=== PATIENT | female | born 1955 | race Caucasian/White ===

== ENCOUNTER 2024-07-20 22:01 | Emergency (ER) | payer MEDICARE, SELFPAY ==
[2024-07-20 22:04] VITALS: BP 184/95
--- NOTE | 2024-07-21 00:38 | ED.GENMED ---
History of Present Illness
General
Chief Complaint: Fall
Time Seen by Provider: 07/21/24 00:03
History of Present Illness
History of Present Illness:
Patient is a 68-year-old woman who is otherwise healthy presenting to the emergency department after a fall. Patient was outside about to go up to 2 steps into her house when she tripped. She did not hit her head or lose consciousness. She states
that she landed on her knees with her hands out and then she rolled over to the right side. She thinks that the right side of her ribs hit the steps. She was able to ambulate afterwards. She denies any numbness tingling or weakness. No headache.
No vision changes. No neck pain no back. She is able to do deep breath though she does have some discomfort with it.
Past History
Past History
ED Past Medical History: None
ED Past Surgical History: None
Social History
Living: with family
Phy Exam
Physical Exam
Physical Exam:
GENERAL: no acute distress
HEENT: atraumatic, extraocular muscles intact, no signs of entrapment, dentition intact, no other obvious trauma
NECK: no midline tenderness, normal range of motion, NEXUS criteria negative, no other obvious trauma
BACK: no midline tenderness, no other obvious trauma
CHEST: Right anterior rib tenderness around ribs 6-8, no flail segment, no subcutaneous emphysema, no other obvious trauma
LUNGS: clear to auscultation bilaterally
CARDIOVASCULAR: regular rate and rhythm
ABDOMEN: soft, non-tender, no masses, no other obvious trauma
PELVIS: stable, no obvious injury
EXTREMITIES: moving all extremities, distal pulses intact, no other obvious trauma, small abrasions to bilateral knees
NEUROLOGIC: awake, alert x 3, no focal deficits
Course
Orders/Labs/Results
Orders:
Orders
07/20/24 22:08
Ribs, Right 3 View W/PA Chest [CR Ribs-right 3 Vw W/pa Chest*] Urgent
Comment:
Reason For Exam: fall, right rib pain.
07/21/24 00:23
Incentive Spirometry [Rx Incentive Spirometry] [RESP] Urgent
Frequency: q1h while awake
Vital Signs
Initial and Last Documented VS:
Initial Vital Signs
Temp Pulse Resp BP Pulse Ox
98 F 103 18 184/95 96
07/20/24 22:04 07/20/24 22:04 07/20/24 22:04 07/20/24 22:04 07/20/24 22:04
Last Documented Vital Signs
Temp Pulse Resp BP Pulse Ox
98 F 103 18 184/95 96
07/20/24 22:04 07/20/24 22:04 07/20/24 22:04 07/20/24 22:04 07/20/24 22:04
MDM/Problems Addressed
Differential Diagnosis Includes:
Patient is a 68-year-old woman who is otherwise healthy presenting to the emergency department after mechanical trip and fall where she landed on her knees her hand and then landed on the right side of her ribs. Vitals unremarkable and exam does
show tenderness over the right lower anterior rib as well as small abrasions to her knees. No point tenderness. She is ambulatory. Differential consists of rib fractures. Could have fracture to the knee though she was ambulatory does not have
any point tenderness. Given she did not hit her head lose consciousness and she is not on a blood thinner less likely to have traumatic intracranial injury. consider obtaining CT scan however given that she has no focal neurological deficits and is
not on a blood thinner we will hold off. Chest x-ray obtained prior to evaluation was per my interpretation does not show any rib fracture. I did offer pain control with Tylenol Motrin and a lidocaine patch however patient prefers to go home to
take those medications. I did give her an incentive spirometer. She was pulling almost [id number] which is reassuring. Strict return precautions given.
*Critical Care Note
Total Time (30-74mins, 75-104mins- exclusive of procedures): Not Applicable
ED Attending Note
-
Portions of this chart may have been created with voice recognition software.� Occasional wrong word or��sound alike� substitutions may have occurred due to the inherent limitations of voice recognition software.
Discharge Plan
Departure
Patient Disposition: Home (Routine Discharge)
Date of Disposition: 07/21/24
Time of Disposition: 00:37
Patient with high blood pressure during this ER visit?: Yes
Discharge Problem:
Contusion of rib
Referrals:
Stephan Dee MD [Family Provider] -
Discharge Date and Time
Print Language: INDONESIAN
[2024-07-21 00:45] VITALS: BP 113/90
== END 2024-07-21 00:49 | disposition home or self-care (01) ==
LOC: EMR 22:01
PROVIDERS: EMERGENCY PHYSICIAN Student in an Organized Health Care Education/Training Program; FAMILY PHYSICIAN Family Medicine
DX: S20.211A Contusion of right front wall of thorax, initial encounter (principal); S80.212A Abrasion, left knee, initial encounter; S80.211A Abrasion, right knee, initial encounter; W10.9XXA Fall (on) (from) unspecified stairs and steps, initial encounter
CPT/HCPCS: 99283; 71101

== ENCOUNTER → 2024-10-22 07:11 | Outpatient (REF) | payer MEDICARE, SELFPAY ==
[2024-10-22 09:41] LABS: % Basophils 1.1 % (0-2); % Eosinophils 2.4 % (0-6); % Immature Granulocytes 0.3 % (0-0.5); % Lymphocytes 27.5 % (20.5-51.1); % Monocytes 8.7 % (1.7-9.3); Absolute Basophils 0.1 10^3/uL (0-0.2); Absolute Eosinophils 0.2 10^3/uL (0-0.7); Absolute Lymphocytes 1.8 10^3/uL (1.2-3.4); Absolute Monocytes 0.6 10^3/uL (0.1-0.6); Hematocrit 45.1 % (37.0-47.0); Hemoglobin 14.2 g/dL (12.0-16.0); Mean Corp Hgb Conc. 31.5 g/dL (33.0-37.0); Mean Corpuscular Hgb 29.8 pg (27.0-31.0); Mean Corpuscular Volume 94.5 fL (81.0-99.0); Mean Platelet Volume 9.8 fL (7.4-10.4); Nucleated Red Blood Cells % 0 %; Platelet Count 274 10^3/uL (130-400); Red Blood Cell Count 4.77 10^6/uL (4.20-5.40); Red Cell Dist. Width 13.4 % (11.5-14.5); White Blood Cell Count 6.7 10^3/uL (4.8-10.8)
[2024-10-22 09:51] LABS: ALT (SGPT) 17 U/L (0-35); AST (SGOT) 21 U/L (14-36); Albumin 4.2 g/dl (3.5-5.0); Alkaline Phosphatase 124 U/L (38-126); Blood Urea Nitrogen 19 mg/dl (7-17); Calcium 10.1 mg/dl (8.4-10.2); Carbon Dioxide 29 mmol/L (22-30); Chloride 100 mmol/L (98-107); Glucose 114 mg/dl (70-99); HDL Cholesterol 97 mg/dl; LDL Cholesterol, Calculated 135 mg/dl; Potassium 4.2 mmol/L (3.5-5.1); Sodium 138 mmol/L (135-145); Total Bilirubin 0.4 mg/dl (0.2-1.3); Total Cholesterol 252 mg/dl (50-199); Total Protein 7.2 g/dl (6.3-8.2); Triglyceride 103 mg/dl (10-149); Very Low Density Lipoprotein 20 mg/dl (0-30); eGFR > 60.00
[2024-10-22 10:19] LABS: TSH Reflex To Free T4 0.97 uIU/ml (0.47-4.68)
[2024-10-22 11:06] LABS: Glycohemoglobin (HgbA1c) 5.3 % (4.0-5.6)
== END ==
LOC: HWLAB 07:11
PROVIDERS: ATTENDING PHYSICIAN Physician Assistant Medical; FAMILY PHYSICIAN Physician Assistant Medical
DX: R73.01 Impaired fasting glucose (principal); E78.2 Mixed hyperlipidemia; Z00.01 Encounter for general adult medical examination with abnormal findings; E03.9 Hypothyroidism, unspecified
CPT/HCPCS: 36415; 80053; 80061; 83036; 84443; 85025

== ENCOUNTER → 2024-10-28 18:45 | Outpatient (REF) | payer MEDICARE, SELFPAY | LOC: MRI 18:45 | PROVIDERS: ATTENDING PHYSICIAN Physician Assistant Medical | DX: R03.0 Elevated blood-pressure reading, without diagnosis of hypertension (principal); E78.2 Mixed hyperlipidemia; H53.40 Unspecified visual field defects; R29.898 Other symptoms and signs involving the musculoskeletal system | CPT/HCPCS: 70553; A9575 ==

== ENCOUNTER 2024-10-31 13:38 | Inpatient (IN) | payer MEDICARE, SELFPAY ==
[2024-10-29 18:02] VITALS: BP 146/88
[2024-10-29 18:21] LABS: % Basophils 1.1 % (0-2); % Immature Granulocytes 0.3 % (0-0.5); % Monocytes 5.5 % (1.7-9.3); % Neutrophils 56.1 % (42.2-75.2); Absolute Basophils 0.1 10^3/uL (0-0.2); Absolute Eosinophils 0.1 10^3/uL (0-0.7); Absolute Lymphocytes 2.2 10^3/uL (1.2-3.4); Absolute Monocytes 0.4 10^3/uL (0.1-0.6); Absolute Neutrophils 3.6 10^3/uL (1.4-6.5); Hematocrit 43.1 % (37.0-47.0); Mean Corp Hgb Conc. 32.5 g/dL (33.0-37.0); Mean Corpuscular Hgb 29.7 pg (27.0-31.0); Mean Corpuscular Volume 91.3 fL (81.0-99.0); Mean Platelet Volume 9.5 fL (7.4-10.4); Nucleated Red Blood Cells % 0 %; Platelet Count 273 10^3/uL (130-400); Red Blood Cell Count 4.72 10^6/uL (4.20-5.40); Red Cell Dist. Width 13.2 % (11.5-14.5); White Blood Cell Count 6.4 10^3/uL (4.8-10.8)
[2024-10-29 18:34] LABS: APTT 28.6 Sec (23.4-35.0)
[2024-10-29 18:40] LABS: ALT (SGPT) 18 U/L (0-35); AST (SGOT) 24 U/L (14-36); Albumin 4.2 g/dl (3.5-5.0); Alkaline Phosphatase 113 U/L (38-126); Blood Urea Nitrogen 11 mg/dl (7-17); Calcium 9.6 mg/dl (8.4-10.2); Carbon Dioxide 27 mmol/L (22-30); Chloride 99 mmol/L (98-107); Glucose 133 mg/dl (70-99); Potassium 4.2 mmol/L (3.5-5.1); Sodium 134 mmol/L (135-145); Total Bilirubin 0.4 mg/dl (0.2-1.3); Total Protein 7.1 g/dl (6.3-8.2); eGFR > 60.00
--- NOTE | 2024-10-29 21:15 | ED.CVA ---
History of Present Illness
<Joan Richardson PA-C - Last Filed: 10/30/24 00:47>
General
Chief Complaint: CVA/TIA Symptoms
Source: patient and spouse ( at bedside)
Exam Limitations: none
Time Seen by Provider: 10/29/24 20:35
Nursing documentation reviewed up to this point in time: agreed with
Onset of Stroke Symptoms
Onset of symptoms known: Yes
Date of onset of symptoms: 10/17/24
History of Present Illness
History of Present Illness:
Patient is a 68-year-old female with history of hyperlipidemia presenting to the emergency department after abnormal MRI of her brain. Patient reports a transient sudden loss of vision in her left eye on Octoberzel she was walking her dog.
Approximately 4 days following that she noticed decreased dexterity in her right hand which has been persistent. After discussing these findings with her primary care doctor during regularly scheduled appointment MRI brain was ordered which
resulted tonight and showed 'several small nonhemorrhagic subacute left parietal lobe infarct '. Patient referred to the emergency department by primary care.
Patient denies any headache, weakness in extremities, numbness/tingling in extremities. No chest pain or shortness of breath. Patient denies any current visual changes, dysarthria, ataxia. No chest pain or shortness of breath
Patient did have known hyperlipidemia although has not been taking her statin in a few years. Patient did recently restart her statin yesterday and also took a baby aspirin today.
Past History
<Joan Richardson PA-C - Last Filed: 10/30/24 00:47>
Past History
ED Past Medical History: None
ED Past Surgical History: None
Social History
Living: with family
Review of Systems
<Joan Richardson PA-C - Last Filed: 10/30/24 00:47>
Review of Systems
Allergies reviewed?: Yes
All Other Systems: ROS reviewed and negative except as documented in HPI and ROS
Phy Exam
<Joan Richardson PA-C - Last Filed: 10/30/24 00:47>
Physical Exam
Physical Exam:
Vitals: Mildly hypertensive, otherwise vital signs stable. Afebrile
General: Patient is well appearing, no acute distress. Nontoxic appearing
Skin: Warm and dry, no rashes or lesions
Head: Normocephalic, atraumatic
Eyes: Sclera nonicteric. EOMs intact. Visual mendes intact. Pupils equal round and reactive to light bilaterally. No nystagmus.
Throat: Protecting airway
Neck: Normal ROM, no cervical spine tenderness, no meningismus
Cardiac: Regular rate and rhythm, no murmurs.
Pulm: Normal respiratory effort, no wheezes, rales, rhonchi heard on exam.
Abdomen: Abdomen soft no abdominal tenderness.
Extremities: No evidence of cyanosis or edema. Strength 5 out of 5 in lower extremities. Library Historian strength equal. No extremity drift in bilateral upper or lower extremity. Some notable decreased dexterity in right hand.
Neuro: AAOx3. CN II-XII intact. No focal neurologic deficits. Sensation fully intact. No facial droop or asymmetry. Fluid speech. Normal cerebellar exam.
Psychiatric: Normal affect.
Scores
<Joan Richardson PA-C - Last Filed: 10/30/24 00:47>
NIH Stroke Score
Level of Consciousness: 0 - Alert
LOC Questions: 0-Answers both correctly
LOC Commands: 0-Performs both correctly
Best Horizontal Gaze: 0-Normal
Visual Mendes: 0=Normal, no visual loss
Facial Palsy: 0=Normal, symmetrical
Motor - Right Arm: 0=No drift 10 seconds
Motor - Left Arm: 0=No drift 10 seconds
Motor - Right Le-No drift 5 seconds
Motor - Left Le-No drift 5 seconds
Limb Ataxia: 0-Absent
Sensation: 0-Normal
Best Language: 0-No aphasia
Dysarthria: 0-Normal
Extinction and Inattention: 0-No abnormality
Total Score:: 0
<Clay Causey DO - Last Filed: 10/30/24 00:00>
NIH Stroke Score
Total Score:: 0
Course
<Joan Richardson PA-C - Last Filed: 10/30/24 00:47>
Orders/Labs/Results
Orders:
Orders
10/29/24 18:13
Complete Blood Count/With Diff Urgent
Comprehensive Metabolic Panel Urgent
PTT Urgent
10/29/24 21:42
Electrocardiogram (*1) Urgent
Reason for Study: TIA/Stroke
10/29/24 22:08
CT Head & Neck Angio W/wo IV Urgent
Comment: recommended by neurology
Reason For Exam: several subacute left parietal infarcts on MRI
Aspirin Chewable [Low Strength Aspirin] 162 mg PO NOW STA
Clopidogrel Bisulfate [Plavix] 75 mg PO NOW STA
10/29/24 23:27
Admit/Transfer Patient As Directed
Co-Sign Provider:
Level of Care: Observation services
Assign to:: Telemetry
Physician / Group: Josesito
Diagnosis: CVA
Reason for Telemetry: CVA/TIA
Date to Stop Telemetry: 11/01/24
Time to Stop Telemetry: 11:00
Code Status As Directed
Resuscitation Status: Full Code
PRN Pain Medication Management As Directed
May give lesser potent ordered pain med per pt: Yes
preference::
Protocol:: Medication orders for pain may be administered in a
manner that supports deferring to patient preference
when the pt is:
- Requesting an ordered lesser potent pain medication.
Least to most potent pain medications are defined
as: acetaminophen < NSAID < tramadol < opioids
(morphine, oxycodone, hydromorphone).
- Requesting a lesser dose of the same medication IF
ORDERED.
- Requesting a less intrusive route of administration
if both routes are prescribed by the provider (PO <
IV).
10/29/24 23:51
Acetaminophen [Tylenol/Feverall] 650 mg RECTAL Q4HPRN PRN
Acetaminophen [Tylenol] 650 mg PO Q4HPRN PRN
10/29/24 23:51
Echo 2D MMode Color/Doppler Routine
Reason for Study: stroke/TIA
Case Management Consult ONCE
Case Management Consult: Discharge Planning
Comment: stroke/tia
DIETARY CONSULT Routine
Reason for Consult: stroke/TIA
NEUROLOGY CONSULT Routine
Consulting Provider: Jeffrey Esqueda
Was physician already notified: Yes
Yarding Engineer Routine
Activity As Directed
Activity Level: Out of Bed-Early Mobility
NIH Stroke Scale As Directed
Directions: Per protocol
Comment: every shift and with any change in condition or mental status
Patient Education As Directed
Type: Stroke education packet
Comment: provide to patient and family
Pneumatic Compression Sleeves As Directed
Type: Knee high
Vital Signs As Directed
Frequency: Per unit guidelines
Ot Eval And Treat Routine
Pt Eval And Treat Routine
Activity Level: Out of Bed-Early Mobility
Speech Therapy Eval & Treat Routine
DX Deep Vein Thrombosis Video Routine
10/30/24 06:00
Cardiovascular Evaluation IN AM
Levothyroxine [Synthroid] 112 mcg PO DAILY@0600
10/30/24 08:00
Aspirin Chewable [Low Strength Aspirin] 81 mg PO DAILY
Clopidogrel Bisulfate [Plavix] 75 mg PO DAILY
Fluoxetine HCl [Prozac] 20 mg PO DAILY
Fluoxetine HCl [Prozac] 40 mg PO DAILY
10/30/24 18:00
Atorvastatin [Lipitor] 40 mg PO QPM
11/01/24 11:00
DC Protocol for Telemetry ONCE
Abnormal Lab Results
10/29/24
18:13
MCHC 32.5 L g/dL
(33.0-37.0)
Sodium 134 L mmol/L
(135-145)
Glucose 133 H mg/dl
(70-99)
10/29/24 18:13
10/29/24 18:13
Vital Signs
Initial and Last Documented VS:
Initial Vital Signs
Temp Pulse Resp BP Pulse Ox
98.3 F 88 20 146/88 98
10/29/24 18:02 10/29/24 18:02 10/29/24 18:02 10/29/24 18:02 10/29/24 18:02
Last Documented Vital Signs
Temp Pulse Resp BP Pulse Ox
98.2 F 85 21 131/80 96
10/29/24 22:02 10/29/24 23:56 10/29/24 23:56 10/29/24 23:56 10/29/24 23:56
Kennedylt;Clay Causey, DO - Last Filed: 10/30/24 00:00>
Orders/Labs/Results
Orders:
Orders
10/29/24 18:13
Complete Blood Count/With Diff Urgent
Comprehensive Metabolic Panel Urgent
PTT Urgent
10/29/24 21:42
Electrocardiogram (*1) Urgent
Reason for Study: TIA/Stroke
10/29/24 22:08
CT Head & Neck Angio W/wo IV Urgent
Comment: recommended by neurology
Reason For Exam: several subacute left parietal infarcts on MRI
Aspirin Chewable [Low Strength Aspirin] 162 mg PO NOW STA
Clopidogrel Bisulfate [Plavix] 75 mg PO NOW STA
10/29/24 23:27
Admit/Transfer Patient As Directed
Co-Sign Provider:
Level of Care: Observation services
Assign to:: Telemetry
Physician / Group: Josesito
Diagnosis: CVA
Reason for Telemetry: CVA/TIA
Date to Stop Telemetry: 11/01/24
Time to Stop Telemetry: 11:00
Code Status As Directed
Resuscitation Status: Full Code
PRN Pain Medication Management As Directed
May give lesser potent ordered pain med per pt: Yes
preference::
Protocol:: Medication orders for pain may be administered in a
manner that supports deferring to patient preference
when the pt is:
- Requesting an ordered lesser potent pain medication.
Least to most potent pain medications are defined
as: acetaminophen < NSAID < tramadol < opioids
(morphine, oxycodone, hydromorphone).
- Requesting a lesser dose of the same medication IF
ORDERED.
- Requesting a less intrusive route of administration
if both routes are prescribed by the provider (PO <
IV).
10/29/24 23:51
Acetaminophen [Tylenol/Feverall] 650 mg RECTAL Q4HPRN PRN
Acetaminophen [Tylenol] 650 mg PO Q4HPRN PRN
10/29/24 23:51
Echo 2D MMode Color/Doppler Routine
Reason for Study: stroke/TIA
Case Management Consult ONCE
Case Management Consult: Discharge Planning
Comment: stroke/tia
DIETARY CONSULT Routine
Reason for Consult: stroke/TIA
NEUROLOGY CONSULT Routine
Consulting Provider: Jeffrey Esqueda
Was physician already notified: Yes
Yarding Engineer Routine
Activity As Directed
Activity Level: Out of Bed-Early Mobility
NIH Stroke Scale As Directed
Directions: Per protocol
Comment: every shift and with any change in condition or mental status
Patient Education As Directed
Type: Stroke education packet
Comment: provide to patient and family
Pneumatic Compression Sleeves As Directed
Type: Knee high
Vital Signs As Directed
Frequency: Per unit guidelines
Ot Eval And Treat Routine
Pt Eval And Treat Routine
Activity Level: Out of Bed-Early Mobility
Speech Therapy Eval & Treat Routine
DX Deep Vein Thrombosis Video Routine
10/30/24 06:00
Cardiovascular Evaluation IN AM
Levothyroxine [Synthroid] 112 mcg PO DAILY@0600
10/30/24 08:00
Aspirin Chewable [Low Strength Aspirin] 81 mg PO DAILY
Clopidogrel Bisulfate [Plavix] 75 mg PO DAILY
Fluoxetine HCl [Prozac] 20 mg PO DAILY
Fluoxetine HCl [Prozac] 40 mg PO DAILY
10/30/24 18:00
Atorvastatin [Lipitor] 40 mg PO QPM
11/01/24 11:00
DC Protocol for Telemetry ONCE
Abnormal Lab Results
10/29/24
18:13
MCHC 32.5 L g/dL
(33.0-37.0)
Sodium 134 L mmol/L
(135-145)
Glucose 133 H mg/dl
(70-99)
10/29/24 18:13
10/29/24 18:13
Vital Signs
Initial and Last Documented VS:
Initial Vital Signs
Temp Pulse Resp BP Pulse Ox
98.3 F 88 20 146/88 98
10/29/24 18:02 10/29/24 18:02 10/29/24 18:02 10/29/24 18:02 10/29/24 18:02
Last Documented Vital Signs
Temp Pulse Resp BP Pulse Ox
98.2 F 85 21 131/80 96
10/29/24 22:02 10/29/24 23:56 10/29/24 23:56 10/29/24 23:56 10/29/24 23:56
<Joan Richardson PA-C - Last Filed: 10/30/24 00:47>
MDM/Problems Addressed
Differential Diagnosis Includes:
Not limited to: CVA, TIA, etc.
MDM/Problems Addressed:
68-year-old female presenting with decreased dexterity in right hand and outpatient MRI which showed subacute infarcts. Symptoms present for the past week. No headache, dizziness, weakness, sensory deficits, visual changes currently. Patient
mildly hypertensive, otherwise stable vital signs. Physical exam as above. Patient alert and oriented with no focal neurologic deficits. NIH of 0. Some notable decreased dexterity of right hand. Cardio/pulmonary assessment unremarkable. Did
review MRI report which showed 'several small nonhemorrhagic subacute left parietal lobe infarct '. Labs initiated in triage without any clinically significant abnormalities. Case discussed with neurology who recommends CTA head/neck to rule out
surgically significant stenosis. Given multiple subacute infarcts�concern for possible embolic process. EKG shows normal sinus rhythm. Will give 2 baby aspirin, Plavix. Feel patient should be admitted for further embolic work-up. Patient seen
with attending physician.
Patient admitted to hospital service in stable condition with CTA head/neck pending
Chronic conditions affecting care:
Hyperlipidemia
Acute Exacerbation and/or Progression of Chronic Illness:
Subacute nonhemorrhagic infarcts
<Joan Richardson PA-C - Last Filed: 10/30/24 00:47>
*Pulse Oximetry
Patient hypoxic: no
*EKG
Interpreted by ED Provider?: Yes
EKG Intrepretation Date: 10/29/24
Interpretation: normal
Comparison EKG: no comparison EKG present
Heart Rate: 69
Rate: normal
Rhythm: sinus
Interval: normal QT interval
QRS Pattern: normal QRS
Ischemia: no ischemia
*Export Freight Clerk Interpretation
Rate: Export Freight Clerk- N/A
*Critical Care Note
Total Time (30-74mins, 75-104mins- exclusive of procedures): Not Applicable
Data Reviewed
Review of Other/Old Records Reveals: Radiology Studies (MRI performed outpatient 10/28/2024 which shows 'several small nonhemorrhagic subacute left parietal lobe infarcts ')
Source: previous radiology exam
<Joan Richardson PA-C - Last Filed: 10/30/24 00:47>
Patient Management
Discussion with other providers: Hospitalist and Fisher Trammel Net (Neurology)
Escalation/DeEscalation of care consider admission/obs:
Admit indicated
ED Attending Note
<Joan Richardson PA-C - Last Filed: 10/30/24 00:47>
-
Portions of this chart may have been created with voice recognition software.� Occasional wrong word or��sound alike� substitutions may have occurred due to the inherent limitations of voice recognition software.
<Clay Causey DO - Last Filed: 10/30/24 00:00>
ED Attending Note
Patient seen and examined by attending physician: Yes
I performed the substantive portion of visit, reviewed & personally made and approve the management plan that is documented in note by myself or JENA.: Yes
ED Attending Note:
68-year-old female presents for evaluation after outpatient MRI shows suspected stroke. Patient originally has some vision changes and now since has had some right upper extremity loss of dexterity. She states her fine motor skills such as holding
a cup of coffee or writing have been affected. Vision has improved. Sent by PCP. Exam: Normal [id number] and no pronator drift. Normal gross strength. Pupils equal round and reactive to light cranial nerves intact. Assessment plan:
Question whether this could be in any way embolic. Patient is otherwise healthy and this event is new. Aspirin, Plavix and admit
Discharge Plan
Departure
Patient Disposition: Admit
Date of Disposition: 10/29/24
Time of Disposition: 22:47
Presentation/result/management discussed w/ accepting MD/DO: Hospitalist
Discharge Problem:
CVA (cerebral vascular accident), Subacute left parietal infarcts
Interventions
Interventions:
*Risk Screen - Suicide Last Done: 10/29/24 22:01
*General Assessment Last Done: 10/29/24 18:02
*Neglect/Abuse Screening Last Done: 10/29/24 22:01
ED- Fall Risk Assessment Last Done: 10/29/24 23:56
*ED COVID-19 Vaccine History Last Done: 10/29/24 22:01
ED- Pulmonary Assessment Last Done: 10/29/24 23:55
ED- Neurological Assessment Last Done: 10/29/24 23:54
ED- Cardiac Assessment Last Done: 10/29/24 23:55
ED Swallowing Screen Last Done: 10/29/24 23:23
[2024-10-29 22:01] VITALS: BMI 34.6
[2024-10-29 22:02] VITALS: BP 131/109
--- NOTE | 2024-10-29 23:10 | HPS.HSE ---
Family Physician
-
Family Physician: Lee Ann Larios PA-C
Chief Complaint
-
Abnormal MRI
History of Present Illness
Patient is a 68 y/o female past medical history of hyperlipidemia who presents after having an abnormal MRI as outpatient. Patient reports about a week ago she had an episode of left eye visual loss while walking her dog. She states her vision was
black for about 15-20 minutes and she had full return of her vision within a few hours. Afterwards she noticed she was having trouble controlling her right hand. She noticed picking this up they would drop. She notes a significant change in her
hand writing because she can't control the pen. She had an outpatient MRI that revealed several small left parietal infarcts and her PCP referred her to the emergency department for evaluation.
Medical History
Past Medical History
Past Medical History: Reports Other
Additional Past Medical History:
Hyperlipidemia
Hypothyroidism
Anxiety/Depression
Past Surgical History: Reports Other
Additional Past Surgical History:
Hysterectomy
Foot Surgery
Social History
Tobacco: Former Smoker (Quit many years ago)
Family History
Family History: Other (Father: CAD requiring bypass in his late 50s)
Allergies / Home Medications
Allergies reflects when Allergies were last updated in [facility].
Home Medications with original date entered in [facility]
Allergy/Medication List:
Allergies
Allergy/AdvReac Type Severity Reaction Status Date / Time
No Known Allergies Allergy Verified 10/29/24 18:01
Home Medications
aspirin 81 mg chewable tablet 81 mg PO DAILY 10/29/24
cholecalciferol (vitamin D3) 25 mcg (1,000 unit) tablet (Vitamin D3) 25 mcg PO DAILY 10/29/24
fluoxetine 20 mg capsule (Prozac) 20 mg PO DAILY 10/29/24
fluoxetine 40 mg capsule (Prozac) 40 mg PO DAILY 10/29/24
levothyroxine 112 mcg tablet (Synthroid) 112 mcg PO DAILY 10/29/24
simvastatin 40 mg tablet 40 mg PO DAILY 10/29/24
Review of Systems
-
A 12 point ROS was completed and negative except as noted: Yes
Constitutional: Denies Fever or Chills
Respiratory: Denies Cough or Trouble Breathing
Cardiac: Denies Chest Pain or Palpitations
Neurological: Reports See HPI
Physical Exam
Vital Signs
Vital Signs
Temp Pulse Resp BP Pulse Ox
98.2 F 74 12 131/109 96
10/29/24 22:02 10/29/24 22:02 10/29/24 22:02 10/29/24 22:02 10/29/24 22:02
Physical Exam
General: Comfortable and Conversant
HEENT: Anicteric and Moist mucous membranes
Respiratory: Clear and Non Labored Respirations
Cardiac: S1/S2 and Regular Rhythm
GI: Soft and Non Tender
Rectal: Deferred by Provider
Musculoskeletal: No Clubbing, No Cyanosis and No Edema
Skin: Warm and Dry
Neuro: Awake, Alert, Oriented, No Motor Deficits and Other (Notable difficulty with rapid finger movements on the right hand)
Psych: Calm
Laboratory Results
-
10/29/24 18:13
10/29/24 18:13
Laboratory Results
APTT 28.6 Sec (23.4-35.0) 10/29/24 18:13
Total Bilirubin 0.4 mg/dl (0.2-1.3) 10/29/24 18:13
AST 24 U/L (14-36) 10/29/24 18:13
ALT 18 U/L (0-35) 10/29/24 18:13
Alkaline Phosphatase 113 U/L (38-126) 10/29/24 18:13
Data Reviewed
-
MRI: Report Reviewed by me
Lab Data: Labs Reviewed by me
Impression/Plan
-
Subacute Left Parietal Infarcts
-Consult Neurology
-Continue aspirin and Plavix
-Increase statin to Lipitor 40mg Daily
-Check HgbA1c and FLP
-Check Echo
-Await official report on Head/Neck CTA
Hypothyroidism
-Continue levothyroxine
Anxiety/Depression
-Continue Prozac
DVT proph: SCDs
Code Status: Full Code
[2024-10-29] MEDS: PLAVIX 75 MG PO (23:24)
[2024-10-29] MEDS: LOW STRENGTH ASPIRIN 162 MG PO (23:25)
--- NOTE | 2024-10-29 23:43 | W.PN.UPDATE ---
Update Note
Progress Note Update
Patient seen conjunction with STAGE [facility], agree with the findings on history and physical as well as the assessment plan unless stated otherwise.
Patient is a 68-year-old female with past medical history significant for hypothyroidism, hyperlipidemia presented to the emergency department after follow-up with PMD for reduced dexterity in the right hand and status post MRI showing subacute left
parietal infarcts.
Patient reported that about a week ago she suddenly had vision loss in the left eye. She reports complete blackness over that eye that lasted a few minutes. About an hour or so after resolution of days she started noticing that she was having
trouble writing or holding objects. When she tried to write in a fine penmanship as she used to she is unable to do so. She had no slurred speech, facial asymmetry, facial droop, facial droop, numbness tingling or weakness in the lower
extremities. She has no recurrence of the vision changes. She reported 1 episode of headache but otherwise unremarkable. Patient denies any other prior episodes. She reports family history significant for CAD in father. No family history of CVA.
In the emergency department today she was afebrile, blood pressure was 130/80 with a pulse of 74 satting at 96% on room air. ECG NSR at 69. No acute findings.
CBC was unremarkable, electrolytes BUN/creatinine was stable. Outpatient MRI with multiple infarcts in the left parietal lobe.
Assessment and plan
Subacute CVA - Possible embolic phenomenon
- admit to tele/obs
- CT angio
- telemetry, echo, a1c, lipid panel
- esr
- start aspirin/plavix/atorvastatin
- PT consult
- neurology consulted and aware.
DVT PPX - SCDs
Code status - full code
[2024-10-29 23:56] VITALS: BP 131/80
[2024-10-30] VITALS (21 sets, daily range): BP systolic 112–154; BP diastolic 65–129; PULSE 70; O2SAT 96
[2024-10-30 05:31] LABS: HDL Cholesterol 85 mg/dl; LDL Cholesterol, Calculated 134 mg/dl; Total Cholesterol 233 mg/dl (50-199); Triglyceride 70 mg/dl (10-149); Very Low Density Lipoprotein 14 mg/dl (0-30)
[2024-10-30] MEDS: SYNTHROID 112 MCG PO (06:46)
[2024-10-30] MEDS: PLAVIX 75 MG PO (07:35)
[2024-10-30] MEDS: LOW STRENGTH ASPIRIN 81 MG PO (07:35)
[2024-10-30] MEDS: PROZAC 20 MG PO (07:35)
[2024-10-30] MEDS: PROZAC 40 MG PO (07:35)
--- NOTE | 2024-10-30 10:09 | CM ---
Met patient and spouse in room. Patient admitted with MRI confirmed CVA. She said she has trouble writing and using her right hand.
They live in 2 level home with 2-3 steps to enter. 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 Patient was very independent. No DME, VNa or SNF in past.
She does have stall shower with grab bars.
PCP Joan Ríos Pa-c
Pharmacy: [facility]
PLAN: Home possibly will need outpatient OT or Hand therapy.
--- NOTE | 2024-10-30 10:16 | CON.NEURO4 ---
Addendum entered and electronically signed by Jeffrey Esqueda MD 10/30/24 14:00:
Studies reviewed.
I have personally examined the patient. I reviewed and agree with the UPHOLSTERY MECHANIC's Note.
My addenda:
Awake, alert, interactive. No acute distress.
Speech intact.
Follows 2-step requests w/o difficulty. No tremor.
Extra-ocular movements grossly intact.
Facial movements full and symmetric. Hearing intact to normal conversational volume.
Normal UE movements bilaterally.
Neck: full ROM.
Chest: no dyspnea
Heart: no JVD
Ext: (-) Clubbing, (-) Cyanosis, (-) Edema
IMPRESSIONS/RECOMMENDATIONS:
Abrupt onset of left eye blindness followed by right hand dysfunction
Both symptomatology most likely answered by the patient's left MCA subacute ischemic stroke as well as the patient's left ICA 85% stenosis
Patient was not a candidate for either alteplase or intra-arterial thrombectomy due to timeframe out of window
Appreciate vascular surgery evaluation with plan to treat by means of surgical intervention
Would provide antiplatelet agents of aspirin and clopidogrel together, follow-up as per vascular surgery with regards to this treatment; typical stroke related treatment would be lifelong aspirin and 21 days total of clopidogrel
Replaced the patient's usual simvastatin with atorvastatin 80 mg due to significantly elevated LDL
Rehabilitation evaluations
Provide medical educational materials
D/W patient / family
Will continue to follow as needed.
Original Note:
Consultation - Neurology 4
-
CONSULTING PHYSICIAN: Dr. Jeffrey Esqueda
REFERRING PHYSICIAN: ROMARIO Gallegos
DICTATED BY: TANYA Ryan
DATE/TIME OF REQUEST: 10/29/2024
DATE/TIME OF CONSULTATION: 11/02/2024
Reason for Consultation: stroke noted on MRI brain
History of Present Illness:
This is a 68 year old right handed female who presented to the hospital with abnormal MRI of the brain. She reports that she was walking her dog when she had sudden onset of left eye blindness almost 2 weeks ago, that lasted about 20 minutes. She
had complete resolution of symptoms after a few hours. She then noted right hand weakness that has been persistent a few days later. She states that she was dropping items and her handwriting has significantly changed. She has had no similar
episodes in the past. She denies any unilateral numbness, weakness, speech difficulty. She denies any slurred speech. She noted deficits to PCP who order MRI brain that showed several small nonhemorrhagic subacute left parietal lobe infarcts. She
did not take ASA prior to event, but she start taking daily ASA yesterday before she arrived at the ER.
CTA showed large volume noncalcific atherosclerotic plaque at the left carotid bifurcation associated with approximately 85% stenosis of the left internal carotid artery at its origin
Currently she continues to have mild right upper extremity weakness. No further vision changes. No other neurologic complaints.
Past Medical History: Hyperlipidemia, hypothyroidism, anxiety, depression
Surgical History: Hysterectomy, foot surgery
Family History: Father CAD
Social History: Patient lives with her . She quit smoking many years ago.
Allergies: See below
Home Medications: See below
Review of Symptoms:
Patient denies any fever, headache, chest pain, shortness of breath, GI or symptoms.
Vital Signs: See below
Physical Exam:
The patient is afebrile, heart sounds S1 and S2 are regular, and chest is clear to auscultation bilaterally.
Neurologic Examination:
The patient is awake, alert and oriented x 3. She is able to follow commands and answer questions appropriately. There is no aphasia or dysarthria. On cranial nerve assessment, pupils are 3 mm bilateral, round and reactive to light and
accommodation. Visual ayala are full. Extraocular movements are intact. Facial sensations are intact and bilaterally symmetrical, there is no facial asymmetry. Hearing is intact bilaterally to normal conversation volume. Tongue palate and uvula are
midline. Sternocleidomastoid strengths are full bilaterally. Motor strengths are 5/5 bilateral upper and lower extremities on medical research Reading scale. There is no drift or involuntary movement noted. She does satellite around right upper
extremity. Deep tendon reflexes are 2+ bilateral upper and lower extremities. Sensations of light touch and temperature are intact and bilaterally symmetrical. There was no extinction noted on double simultaneous stimulation. Coordination is intact
by finger to nose bilaterally.
Lab Results: See below
Neuro Imaging: CT head-Several small nonhemorrhagic subacute left parietal lobe infarcts.
CTA head and neck-There is large volume noncalcific atherosclerotic plaque at the left carotid bifurcation associated with approximately 85% stenosis of the left internal carotid artery at its origin
Impression:
ERAN GUERIN is a 68 year old F who has presented to the hospital with transient left eye vision loss and right hand weakness secondary to left subacute parietal stroke.
Recommendations:
-Reviewed CT head and CT head and neck
-continue ASA and Plavix x 21 days, then continue ASA
-continue High intensity Statin, Atorvastatin 80 mg
-appreciate vascular surgery consultation and agree with surgery today for L ICA stenosis
-continue PT/OT and speech evaluations and treatment
-goal normotension
-goal normoglycemia
-neurochecks and NIHSS per unit guidelines
-DVT prophylaxis '
-rest of medical management per primary care guidelines
Discussed patient care with patient, at bedside, Dr. Joy from Vascular surgery and neurologist Dr. Esqueda.
Medication and Allergies
Home Medications
Home Medications
�Medication �Instructions �Recorded
aspirin 81 mg chewable tablet 81 mg PO DAILY 10/29/24
cholecalciferol (vitamin D3) 25 25 mcg PO DAILY 10/29/24
mcg (1,000 unit) tablet (Vitamin
D3)
fluoxetine 20 mg capsule (Prozac) 20 mg PO DAILY 10/29/24
fluoxetine 40 mg capsule (Prozac) 40 mg PO DAILY 10/29/24
levothyroxine 112 mcg tablet 112 mcg PO DAILY 10/29/24
(Synthroid)
simvastatin 40 mg tablet 40 mg PO DAILY 10/29/24
Allergies
Allergies
Allergy/AdvReac Type Severity Reaction Status Date / Time
No Known Allergies Allergy Verified 10/29/24 18:01
Vital Signs / Labs
-
Vital Signs and Labs:
Temp Pulse Resp BP Pulse Ox
98.3 F 71 20 154/85 93
10/30/24 11:54 10/30/24 11:54 10/30/24 11:54 10/30/24 11:54 10/30/24 11:54
10/29/24 18:13
10/29/24 18:13
10/29/24 10/30/24
18:13 04:55
MCHC 32.5 L
Sodium 134 L
Glucose 133 H
Total Cholesterol 233 H
--- NOTE | 2024-10-30 10:50 | PTOTSP ---
MANIFOLD OPERATOR Evaluation
No signs concerning for dysarthria, verbal expressive deficits, or auditory comprehension deficits.
MOCA 8.1 score 24/30 below normal (26 or greater out of 30) with points lost for visuospatial/drawing of cube, abstraction, sentence repetition, delayed recall, and orientation (date). Consider outpatient evaluation of cognitive linguistic skills.
Recommend:
1. Assess reading, writing, and number identification further.
2. Outpatient cognitive linguistic evaluation
--- NOTE | 2024-10-30 11:27 | W.PN.UPDATE ---
Update Note
Progress Note Update
Seen and examined. Full consultation to follow. Briefly 68-year-old female notes about 2 weeks ago had an acute episode of left eye vision loss. She notes it was like a bull's-eye or black that then eventually resulted in complete visual loss in
the left eye. Continued for about 15 or 20 minutes or so. Then she started getting vision back, and by later in the day she had full vision. She then noticed that she has started having trouble controlling her right hand. She notes that she has
normally good penmanship and ability to write. However she has been having trouble controlling her hand when writing and doing other activities. She is dropping things more frequently. She thinks this happened a couple days after the initial
event of the left eye issues. She has had persistent right arm/hand difficulty. But no recurrent visual loss episodes. Prior to these episodes she has no episodes of amaurosis/unilateral numbness or weakness/speech dysarthria. Notes no prior
history of strokes. No prior history of coronary artery disease. She does note a history of tobacco use, smoked half pack a day for 20ish yrs, quit in the .
On exam/she is awake and alert. Head is normocephalic and atraumatic. Eyes are anicteric. Neck is soft no jugular venous distention. Breathing is unlabored. 2+ upper extremity radial pulses palpable bilaterally. Abdomen is soft. 2+ palpable
pedal pulses bilaterally. Neurologically she moves all extremities well. 5 out of 5 strength throughout. However with biceps flexion on the right may be the slightest weakness compared to the left but still 5 out of [address] angiogram reviewed. Severe left carotid stenosis with severe soft/hemorrhagic plaque.
Plan/ Discussed with patient CTA findings. She has a symptomatic left carotid stenosis with stroke noted in the left hemisphere on MRI. (MRI report reviewed). Discussed with her my concern about this being a symptomatic carotid stenosis.
Discussed my recommendations for revascularization for stroke prevention. Discussed modalities or revascularization. Discussed in her based on plaque morphology and other factors would favor carotid endarterectomy. Discussed procedure at length.
Discussed anticipated recovery/outcome. Discussed risk including but not limited to bleeding, infection, cardiac complication/RI, cranial nerve injury, stroke (in the symptomatic setting could be up to 2 to 3%). Discussed that would favor
relatively expeditious revascularization especially based on concerning CT scan evidence of the plaque and the degree of stenosis. She understands all and wishes to proceed. Will schedule her actually for later today for a LEFT carotid
endarterectomy.
--- NOTE | 2024-10-30 11:34 | CON.VAS ---
Consultation
Consultation Request
Date/Time Consultation Performed: 10/30/24
Requesting Provider: Hospitalist
Performing Provider: Felicity Young, AUT[employer] APPRAISER-C for Jad Joy MD
Reason for Consultation: Symptomatic carotid stenosis
Medical History
-
Chief Complaint: Left carotid symptomatic stenosis
History of Present Illness:
This is a 68-year-old right handed female with significant past medical history of hyperlipidemia, hypothyroidism, and anxiety who presents to [facility] following an abnormal MRI in the outpatient setting. Patient states on Sunday,
10/15/2024 patient noted acute sudden eye loss in the left eye that lasted roughly 15 to 20 minutes and then she had complete resolution of eye loss. Then on 10/19/2024 while preparing a card for a wedding she was attending she noted that her her
handwriting was challenging to control and 'sloppy.' She endorses since noticing her right hand incoordination on 10/19/24 she has had consistent right hand incoordination and frequent dropping of objects. She does feel her right hand/arm is weaker
than baseline. But no recurrent visual loss episodes. Prior to these two episodes she has no episodes of amaurosis/unilateral numbness or weakness/speech dysarthria. Denies prior history of strokes. Denies history of coronary artery disease. She
does note a history of tobacco use, smoked half pack a day for 20ish yrs, quit in the .
Past Medical History
Past Medical History: Other (Hyperlipidemia, hypothyroidism, and anxiety)
Past Surgical History: Other (Hysterectomy and foot surgery)
Social History
Tobacco: Former Smoker
Drug: None
Personal:
Living: With Family
Allergies / Home Medications
Allergy/AdvReac Type Severity Reaction Status Date / Time
No Known Allergies Allergy Verified 10/29/24 18:01
�Medication �Instructions �Recorded �Confirmed �Type
aspirin 81 mg chewable tablet 81 mg PO DAILY 10/29/24 10/29/24 History
cholecalciferol (vitamin D3) 25 25 mcg PO DAILY 10/29/24 10/29/24 History
mcg (1,000 unit) tablet (Vitamin
D3)
fluoxetine 20 mg capsule (Prozac) 20 mg PO DAILY 10/29/24 10/29/24 History
fluoxetine 40 mg capsule (Prozac) 40 mg PO DAILY 10/29/24 10/29/24 History
levothyroxine 112 mcg tablet 112 mcg PO DAILY 10/29/24 10/29/24 History
(Synthroid)
simvastatin 40 mg tablet 40 mg PO DAILY 10/29/24 10/29/24 History
Review of Systems
-
History Source: Patient
Constitutional: Reports No Symptoms
EENT: Reports No Symptoms
Respiratory: Reports No Symptoms
Cardiac: Reports No Symptoms
Abdomen/GI: Reports No Symptoms
: Reports No Symptoms
Musculoskeletal: Reports Other (Right hand/arm incoordination and mild weakness)
Skin: Reports No Symptoms
Neurological: Reports Other (Right hand/arm incoordination and mild weakness and acute vision loss in left eye that has now resolved)
Endocrine: Reports No Symptoms
Physical Exam
Vital Signs
Temp Pulse Resp BP Pulse Ox
98.2 F 70 18 152/75 95
10/30/24 09:24 10/30/24 09:24 10/30/24 09:24 10/30/24 09:24 10/30/24 09:24
Lab Results
10/29/24 18:13
10/29/24 18:13
Physical Exam
General: No Apparent Distress
HEENT: Normocephalic, Anicteric and Atraumatic
Respiratory: Non Labored Respirations
Cardiac: Negative JVD
GI: Soft, Non Tender and Non Distended
Musculoskeletal: No Edema and Other ( 2+ upper extremity radial pulses palpable bilaterally. )
Skin: Warm
Neuro: AO x 3
Pulses: Bilateral Dorsalis Pedis: +2
Assessment / Plan
-
Assessment: 68-year-old female with left carotid symptomatic stenosis with stroke noted in the left history of MRI
Plan:
Dr. Jad Joy at bedside and discussed with her and her his concern about this being a symptomatic carotid stenosis. He discussed recommendations for revascularization for stroke prevention. Discussed modalities of revascularization and
in her based on plaque morphology and other factors would favor carotid endarterectomy. He then Discussed procedure at length; including: anticipated recovery/outcome and risk including but not limited to bleeding, infection, cardiac
complication/CT, cranial nerve injury, stroke (in the symptomatic setting could be up to 2 to 3%). He recommended relatively expeditious revascularization especially based on concerning CT scan evidence of the plaque and the degree of stenosis.
Patient understands all and wishes to proceed. Will schedule her for later today for a LEFT carotid endarterectomy.
--- NOTE | 2024-10-30 11:39 | W.PN.HOSP.TC ---
Today's Communication/Plan
-
Carotid endarterectomy later today
DAPT with statin
NIHSS
Telemetry
PT/OT
Assessment / Plan
Assessment / Plan
#Subacute left parietal infarcts
#Left-sided carotid stenosis
#Amaurosis fugax
-Highly suspicious for symptomatic carotid stenosis with 85% obstruction on CTA on study from the ED
-Outpatient MRI showed the subacute infarcts; was ordered for dysmetria of the right hand as well as monocular vision loss of the left eye
-Symptomatically she is improved with no visual deficits now, residual dysmetria of the left RUE is present
-Was started on DAPT and high intensity statin upon admission, no signs of bleeding; echo normal
-Has remained otherwise hemodynamically stable, BP 143/88 mmHg this morning
-Vascular surgery and neurology following, planning for CEA today
-NIHSS is very low
Plan
-Plan for left CEA later today, n.p.o. for now
-Continue DAPT and high intensity statin (atorvastatin 80 mg)
-Avoid hypotension with high-grade carotid lesion
-Continue on telemetry
-Monitor NIHSS
-PT/OT
#Iatrogenic hypothyroidism
-History of hyperthyroidism, s/p radiotracer ablation of the thyroid
-Now currently on levothyroxine 112 mcg daily
-No signs of thyroid dysfunction
#HLD
-Home medications included simvastatin
-ASCVD history with newly discovered high-grade carotid lesion
#Anxiety/depression
-Continue with Prozac
DVT prophylaxis: SCDs
Diet: N.p.o. pending OR today
CODE STATUS: Full code
Anticipated Discharge: > 48 hours
Subjective/Interval History
-
Date of Service: October 30, 2024
Seen and examined at bedside. No acute events reported since admission. AFVSS this morning
CTA from the ED did show near 85% stenosis of left carotid artery. Subsequently seen by vascular surgery who is recommending carotid endarterectomy later today. N.p.o. from breakfast on
She denies any new complaints today. States her visual deficits have resolved though she still have has the feeling that her right upper extremity is 'clumsy'.
Objective Data
-
Vital Signs:
Vital Signs
Temp Pulse Resp BP Pulse Ox
98.2 F 70 18 152/75 95
10/30/24 09:24 10/30/24 09:24 10/30/24 09:24 10/30/24 09:24 10/30/24 09:24
Review of Systems
-
History Source: Patient
All other systems: Reviewed and negative
Physical Exam
-
General: Well Developed, No Apparent Distress, Comfortable and Obese
HEENT: Normocephalic, Atraumatic, Moist Mucous Membranes and Anicteric
Respiratory: Clear to Auscultation and Non Labored Respirations
Cardiac: Regular Rhythm and S1/S2; Negative Murmur, Rub or Gallop
GI: Soft, Nontender, Nondistended and Normal Bowel Sounds
Musculoskeletal: No Clubbing, No Cyanosis and No Edema
Skin: Warm and Dry; Negative Rash
Neuro: AO x 3, Central Nerve's Intact, DTR's Intact & Symmetrica and Other (4+/5 MMS to the RUE); Negative Slurred Speech or Facial Droop
Psych: Calm
Data Reviewed
-
CT Scan: Report Reviewed by me and Discussed with Physician (Neurology, vascular surgery)
Labs: Labs Reviewed by me and Discussed with Patient
[2024-10-30] MEDS: BACTROBAN 2% OINTMENT 1 APPLIC NASAL (15:13)
[2024-10-30] MEDS: PERIDEX 0.12% ORAL RINSE 15 ML PO (15:13)
--- NOTE | 2024-10-30 15:45 | W.SUR.PREOP ---
Pre-Operative Surgical Note
-
I have examined this patient prior to the performance of the scheduled procedure.
The patient's condition is unchanged from the time of the current History and
Physical and the patient is able to undergo the scheduled procedure.
--- NOTE | 2024-10-30 17:25 | W.SUR.POST ---
Surgical Immediate Post Op
Note
Pre Op Diagnosis: Carotid stenosis
Post Op Diagnosis: Same
Procedure Performed: Left carotid endarterectomy with bovine pericardial patch angioplasty and EEG monitoring
Primary Surgeon: Rufino
Assist: Robert MARTÍNEZ
Anesthesia: General
Estimated Blood Loss: 20 cc
Fluids: See anesthesia flowsheet
Drains/Shunts: None
Specimens/Cultures: Carotid plaque
Doppler/Duplex/Angio (Y/N): Y
Complications: None
Operative Findings: Woke from anesthesia moving all extremities
--- NOTE | 2024-10-30 17:27 | OR.RPT ---
Operative Report
Operative Report
PROCEDURE DATE: 10/30/2024
Preoperative diagnosis: Symptomatic left carotid artery stenosis.
Postoperative diagnosis: Same
Procedure: Left carotid endarterectomy with bovine pericardial patch angioplasty and intraoperative EEG/SSEP monitoring.
Surgeon: Rufino
Field Control Inspector: AMBAR Jones, required for all aspects of procedure including assistance with traction/countertraction, following of suture line, assistance with closure.
Complications: None
Anesthesia: General
Indications for procedure:
Symptomatic left carotid artery stenosis with MRI findings of subacute left hemispheric infarct. Symptoms of left eye amaurosis approximately 2 weeks prior. Ongoing symptoms of continued right hand discoordination. CT angiogram imaging
demonstrated severe stenosis left carotid with soft or hemorrhagic appearing type plaque. Risk/benefit/alternatives of revascularization were all fully discussed. Patient understood and wished to proceed.
Description of procedure:
Patient was identified brought to the operating room placed on the table in supine position. After the adequate administration of anesthesia and perioperative antibiotics she was prepped and draped in the standard surgical fashion. A standard
preoperative timeout was undertaken and everybody was in agreement the plan. A standard longitudinal incision was made in the left neck that was carried through the skin subcutaneous tissue. Using the electrocautery dissection was carried through
the platysma muscle layer and then alongside the anterior medial border of the sternocleidomastoid muscle. Then using a combination of sharp dissection with the Metzenbaum scissors and electrocautery I dissected along the anterior medial border of
the internal jugular vein. The common facial vein branch was ligated between silk ties and then divided. I then deepened my retraction. The common carotid artery was identified and carefully dissected away from the surrounding structures take
great care to avoid any injury to the structures. A vessel loop was passed around it which was double looped, but not yet tightened. Note the vagus nerve was noted in its usual course posterior lateral to the common carotid artery, and was
protected from harm's way. I then continued my dissection up the common carotid artery to the bulb staying only on the anterior surface of the carotid artery. Then I carried the dissection up to the internal carotid artery and then to the distal
internal carotid artery. I identified where it was soft and carefully circumferentially dissected the internal carotid artery with minimal mobilization and passed a vessel loop around it. Note the hypoglossal nerve was preserved from harm's way.
The patient was given an appropriate dose of heparin 8500 units. Next I dissected the anterior surface of the external carotid artery and superior thyroid branches. These were then carefully circumferentially dissected with minimal mobilization
and vessel loops passed around these which were double looped but not yet tightened. After 3 minutes of heparin circulation time and confirmation of optimization of the blood pressure with my anesthesiology colleagues, I clamped the distal internal
carotid artery where it was soft. There was no immediate EEG or SSEP changes. After 1 minute of test clamp time there was no changes noted. Therefore at this point, the vessel loops on the external carotid artery and superior thyroid branches
were tightened and the common carotid artery was clamped where it was soft proximally. An arteriotomy was made on the common carotid artery with an 11 blade and extended using a Melissa scissor. I then extended the arteriotomy onto the mid to distal
internal carotid artery. Just on the proximal internal carotid artery as noted on CT scan there was severe soft plaque. This was nonhemorrhagic but was very soft and piecemeal like.. A [place] was then used to endarterectomized the plaque. An
endarterectomy plane was somewhat created, and the plaque was then endarterectomized. But in all honesty, the typical endarterectomy plane was challenging to achieve as the plaque seemed more luminal than it was in the wall. It seems somewhat free
almost like bulky thrombus. This proved to be very challenging due to the soft consistency of the plaque. The plaque itself created a near occlusion of the artery. It was a very bulky plaque, but was very soft and friable. It came out somewhat
piecemeal although the bulk of it I was able to endarterectomized out. Distally I feathered the plaque out to a nice clean endpoint in the distal internal carotid artery. There was much debris as it came out piecemeal. Therefore I had to
meticulously remove all debris using fine forceps including susanna does forceps. The severe plaque process ended in the carotid bulb. I then grasped the plaque/residual intima and everted plaque out of the origin of the external carotid artery.
This also came out somewhat piecemeal and was very challenging. However, I was able to get it all out. The plaque was then sent off for specimen. The origin of the external carotid artery was carefully visualized and any fine debris were removed
with fine forceps. Proximal and distal endpoints were then carefully inspected. Any residual fine debris was removed with fine forceps, and the intima was noted to be nicely adherent proximally and distally. Next any fine debris were removed
throughout the endarterectomy bed with fine forceps. I then flushed heparinized saline. I flushed significant amount of heparinized saline to make sure to flush out any debris. I was very satisfied. Then, I used a bovine pericardial patch to sew
a patch angioplasty with a running 6-0 Prolene suture. Prior to completing and tying down my suture line, I backbled sequentially each branch and reclamped each branch prior to unclamping the next branch. I then irrigated with heparinized saline.
Then I completed and tied down my suture line. We then restored flow in the common carotid and external carotid arteries. Finally, we released flow in the internal carotid artery. There was excellent pulsatile flow in all 3 vessels. There was an
excellent Doppler signal in the internal carotid artery distal to the patch with a good normal low resistance Doppler signal. There was a good Doppler signal in the external carotid artery as well. A couple 6-0 Prolene [id number] sutures were
placed along any bleeding points along the suture line. Protamine was given to reverse the heparin. Hemostasis was completely achieved. We then irrigated and confirmed full hemostasis. We then closed in layers with 2-0 Vicryl layer to
reapproximate the sternocleidomastoid muscle, followed by 3-0 Vicryl platysma muscle running layer, followed by 4-0 Monocryl subcuticular stitch. Dermabond was applied. The patient tolerated procedure well. She awoke moving all extremities to
command with tongue in the midline.
[2024-10-30] MEDS: DILAUDID 0.5 MG IV (17:51)
[2024-10-30 18:06] LABS: Hematocrit 40.4 % (37.0-47.0); Hemoglobin 13.1 g/dL (12.0-16.0); Mean Corp Hgb Conc. 32.4 g/dL (33.0-37.0); Mean Corpuscular Hgb 29.6 pg (27.0-31.0); Mean Corpuscular Volume 91.4 fL (81.0-99.0); Mean Platelet Volume 9.7 fL (7.4-10.4); Platelet Count 219 10^3/uL (130-400); Red Blood Cell Count 4.42 10^6/uL (4.20-5.40); Red Cell Dist. Width 13.2 % (11.5-14.5); White Blood Cell Count 7.5 10^3/uL (4.8-10.8)
[2024-10-30 18:15] LABS: Blood Urea Nitrogen 8 mg/dl (7-17); Calcium 8.6 mg/dl (8.4-10.2); Carbon Dioxide 25 mmol/L (22-30); Estimated Creatinine Clearance 65 ml/min; Glucose 118 mg/dl (70-99); eGFR > 60.00
[2024-10-30 18:20] LABS: Chloride 102 mmol/L (98-107); Potassium 4.3 mmol/L (3.5-5.1); Sodium 134 mmol/L (135-145)
[2024-10-30] MEDS: DILAUDID 0.25 MG IV (18:24)
[2024-10-30] MEDS: NSS 1000 IV (18:32)
[2024-10-30 18:34] LABS: INR 1.06; PT 14.1 Sec (11.4-14.6)
[2024-10-30 18:37] LABS: APTT 30.6 Sec (23.4-35.0)
--- NOTE | 2024-10-30 19:16 | SUR.PHASEI ---
patient in pacu post op left carotid, awakened to name on arrival, speech slow but deliberate, initially looked like slight facial droop on right - OR nurse stated same as preop. (patient without teeth) - as she became more awake -smile
symmetrical. other than slower deliberate speech alert and oriented. speech also improved with time. Medicated x2 with dilaudid for pain. Dr Joy visits in pacu. reviewed assess. Family updated - await ICCU room and nurse
[2024-10-30] MEDS: LIPITOR 80 MG PO (20:39)
--- NOTE | 2024-10-30 21:21 | PTCARENOTE ---
pt received from assistant laboratory director. pt assessed. slightly drowsy but oriented x4. moves all extremities. endorses (+) sensation x4. PERRLA 3 and brisk. N/V checks done as per policy q 15min x 1 hr then q 30min then q 1hr. all checks wnl and pt baseline. sx
site to R neck CDI, MACHINE FEATHEREDGER AND REDUCER with sx glue in place. trace edema noted. no change to site as per assistant laboratory director RN when pt was handed off to this RN. NSR on monitor. A-line in place with good waveform. pt on 2L O2 via NC. tolerating well. abd soft nontender. pt
has not urinated as of this note. no open areas other than sx site noted. no s/s of distress assessed. will continue to monitor.
[2024-10-31] VITALS (11 sets, daily range): BP systolic 106–130; BP diastolic 63–107; PULSE 81–85; O2SAT 93; BMI 35.9
[2024-10-31] MEDS: TYLENOL 650 MG PO ×3 (01:22→12:32)
[2024-10-31 04:37] LABS: % Basophils 0.2 % (0-2); % Immature Granulocytes 0.6 % (0-0.5); % Lymphocytes 7.3 % (20.5-51.1); % Monocytes 4.5 % (1.7-9.3); % Neutrophils 87.4 % (42.2-75.2); Absolute Immature Granulocytes 0.1 10^3/uL (0-0.05); Absolute Lymphocytes 0.6 10^3/uL (1.2-3.4); Absolute Monocytes 0.4 10^3/uL (0.1-0.6); Absolute Neutrophils 7.7 10^3/uL (1.4-6.5); Hematocrit 38.9 % (37.0-47.0); Hemoglobin 12.6 g/dL (12.0-16.0); Mean Corp Hgb Conc. 32.4 g/dL (33.0-37.0); Mean Corpuscular Hgb 29.4 pg (27.0-31.0); Mean Corpuscular Volume 90.7 fL (81.0-99.0); Mean Platelet Volume 9.6 fL (7.4-10.4); Nucleated Red Blood Cells % 0 %; Platelet Count 229 10^3/uL (130-400); Red Blood Cell Count 4.29 10^6/uL (4.20-5.40); White Blood Cell Count 8.8 10^3/uL (4.8-10.8)
[2024-10-31 04:43] LABS: INR 0.99; PT 13.4 Sec (11.4-14.6)
[2024-10-31 04:51] LABS: Blood Urea Nitrogen 11 mg/dl (7-17); Calcium 8.9 mg/dl (8.4-10.2); Carbon Dioxide 25 mmol/L (22-30); Chloride 103 mmol/L (98-107); Estimated Creatinine Clearance 83 ml/min; Glucose 142 mg/dl (70-99); Potassium 4.8 mmol/L (3.5-5.1); Sodium 133 mmol/L (135-145); eGFR > 60.00
--- NOTE | 2024-10-31 04:56 | PTCARENOTE ---
no change in pt status this shift. medicated for pain x1 with tylenol. NV checks have been WNL. site appears CDI. slight edema remains present. no s/s of distress assessed. will continue to monitor.
[2024-10-31 05:42] LABS: Hepatitis C Antibody Negative (Negative)
[2024-10-31] MEDS: SYNTHROID 112 MCG PO (06:32)
[2024-10-31] MEDS: NSS 1000 IV (06:32)
[2024-10-31] MEDS: PLAVIX 75 MG PO (07:39)
[2024-10-31] MEDS: PROZAC 40 MG PO (07:40)
[2024-10-31] MEDS: PROZAC 20 MG PO (07:40)
[2024-10-31] MEDS: LOW STRENGTH ASPIRIN 81 MG PO (07:40)
--- NOTE | 2024-10-31 07:48 | PTCARENOTE ---
report received, prior shift vitals captured, unable to confirm accuracy from prior shift. vascular team at bedside. NIH 0, c/o some fine motor dexterity right hand. per vascular team, this was present preop. assessments per work list. family at
bedside. updated on plan of care
--- NOTE | 2024-10-31 07:51 | W.PN.VS ---
Today's Communication / Plan
-
See below.
Assessment/Plan
-
Assessment: 68-year-old female POD #1 left carotid endarterectomy
Plan:
Discontinue IV fluids
Discontinue arterial line
Advance diet to low-cholesterol
OOB to chair with progression to ambulation as tolerated
Will reevaluate later this afternoon for possible discharge from a vascular surgery perspective
Subjective Data
-
Date of Service: October 31, 2024
Patient seen and examined at bedside, endorses mild discomfort at left surgical neck site well-managed with current pain medication regimen. Denies dysphagia, dysarthria, aphasia, tongue deviation, unilateral weakness (other than baseline right
upper extremity coordination), and headache.
Objective Data
-
Vital Signs
Temp Pulse Resp BP Pulse Ox
97.7 F 61 17 115/69 87
10/31/24 04:00 10/31/24 07:15 10/31/24 07:15 10/31/24 04:00 10/31/24 07:15
Intake and Output
10/30/24 10/31/24 11/01/24
06:59 06:59 06:59
Intake Total 1989
Output Total 450 / 450
Balance 1540 / 1540
Intake:
Oral fluids 780 / 780
IV fluids (Total) 1210 / 1210
normosol 150 / 150
nss 1060 / 1060
Output:
Urine, Voided 450 / 450
Lab Results
10/31/24 04:10
10/31/24 04:10
Calcium 8.9 mg/dl (8.4-10.2) 10/31/24 04:10
Total Bilirubin 0.4 mg/dl (0.2-1.3) 10/29/24 18:13
AST 24 U/L (14-36) 10/29/24 18:13
ALT 18 U/L (0-35) 10/29/24 18:13
Alkaline Phosphatase 113 U/L (38-126) 10/29/24 18:13
Total Protein 7.1 g/dl (6.3-8.2) 10/29/24 18:13
Albumin 4.2 g/dl (3.5-5.0) 10/29/24 18:13
Physical Exam
-
No apparent distress, resting in bed comfortably
Face symmetrical, tongue midline, left neck surgical site CDI, no evidence of hematoma, Exofin glue intact
No tachycardia
No dyspnea on room air
Bilateral upper extremity and lower extremity with equal strength and movement, right upper extremity with mild incoordination which is patient's baseline following recent stroke, patient also endorses no changes to right upper extremity
incoordination
--- NOTE | 2024-10-31 09:27 | CON.INTV ---
Consultation
Consultation Request
Date/Time Consultation Requested: 10/30/2024 - 172
Date/Time Consultation Performed: 10/31/2024 - 821
Requesting Provider: TANYA Vee
Performing Provider: Dr. Early
Reason for Consultation: s/p left CEA
Medical History
-
Chief Complaint: Abnormal MRI
History of Present Illness:
68-year-old female former tobacco smoker with a past medical history of GERD, hypothyroidism and hypercholesterolemia who presented at the request of her PCP due to an abnormal MRI. She had an MRI due to limited usage of her right hand. Brain MRI
performed on 10/28/2024 showing several small nonhemorrhagic subacute left parietal lobe infarcts. She was admitted to telemetry for further care with neurology consulted. CTA head/neck performed on 10/29/2024 showed large volume noncalcific
atherosclerotic plaque at the left carotid bifurcation with 85% stenosis of the left ICA at its origin. Vascular surgery was consulted and she was started on antiplatelet therapy with high intensity statin. Vascular surgery discussed
revascularization with her and patient had agreed to procedure. On 10/30/2024, she underwent a left carotid endarterectomy with bovine pericardial patch angioplasty and EEG monitoring. EBL was 20 cc, and there was no complications. She was
transferred to the ICU postoperatively and elevating grader operator services consulted for additional management/recommendations.
Patient seen and evaluated this morning at 8:25 AM. Heart rate 88, saturating 94% on room air. She is likely going home. She denies chest pain, DAVID, nausea, fevers or chills.
PMHx: Hypothyroidism, hypercholesterolemia, GERD
PSHx: section, total hysterectomy, pilonidal cyst, foot surgery
Past Medical History
Past Medical History: Other (Above as per HPI)
Past Surgical History: Other (Above as per HPI)
Social History
Tobacco: Former Smoker (Quit 'many years ago')
Alcohol: None
Drug: None
Family History
Family History: CAD (Father) and Other (Mother: Osteoporosis)
Allergies / Home Medications
Allergies
Allergy/AdvReac Type Severity Reaction Status Date / Time
No Known Allergies Allergy Verified 10/29/24 18:01
Home Medications
�Medication �Instructions �Recorded �Confirmed �Last Taken �Type
aspirin 81 mg chewable tablet 81 mg PO DAILY 10/29/24 10/29/24 Unknown History
cholecalciferol (vitamin D3) 25 25 mcg PO DAILY 10/29/24 10/29/24 Unknown History
mcg (1,000 unit) tablet (Vitamin
D3)
fluoxetine 20 mg capsule (Prozac) 20 mg PO DAILY 10/29/24 10/29/24 Unknown History
fluoxetine 40 mg capsule (Prozac) 40 mg PO DAILY 10/29/24 10/29/24 Unknown History
levothyroxine 112 mcg tablet 112 mcg PO DAILY 10/29/24 10/29/24 Unknown History
(Synthroid)
simvastatin 40 mg tablet 40 mg PO DAILY 10/29/24 10/29/24 Unknown History
Review of Systems
-
History Source: Patient
All other systems: Negative unless noted
Vitals / Labs / Diagnostic Testing
Vital Signs
Temp Pulse Resp BP Pulse Ox
98 F 68 14 127/107 96
10/31/24 07:45 10/31/24 09:15 10/31/24 09:15 10/31/24 09:11 10/31/24 09:15
Lab Data
10/31/24 04:10
10/31/24 04:10
Laboratory Results
10/30/24 10/30/24 10/31/24
17:55 18:19 04:10
PT Cancelled 14.1 13.4
INR Cancelled 1.06 0.99
APTT Cancelled 30.6 29.0
Diagnostic Testing:
Physical Exam
-
HEENT: Normocephalic and Anicteric
Cardiovascular: S1/S2 and Peripheral Edema (negative)
Respiratory: Wheeze (negative), Rales (negative), Rhonchi (negative) and Non-Labored Respirations
GI: Soft, Non Distended, Non Tender and Normal Bowel Sounds
Neurology: Awake, Alert and Tremors (negative)
Skin: Warm and Dry
General: Respiratory Distress (negative), Comfortable, Chills (negative) and Sweats (negative)
Assessment
-
Assessment: 68-year-old female former tobacco smoker with a past medical history of GERD, hypothyroidism and hypercholesterolemia who presented at the request of her PCP due to an abnormal MRI. She had an MRI due to limited usage of her right
hand. Brain MRI performed on 10/28/2024 showing several small nonhemorrhagic subacute left parietal lobe infarcts. She was admitted to telemetry for further care with neurology consulted. CTA head/neck performed on 10/29/2024 showed large volume
noncalcific atherosclerotic plaque at the left carotid bifurcation with 85% stenosis of the left ICA at its origin. Vascular surgery was consulted and she was started on antiplatelet therapy with high intensity statin. Vascular surgery discussed
revascularization with her and patient had agreed to procedure. On 10/30/2024, she underwent a left carotid endarterectomy with bovine pericardial patch angioplasty and EEG monitoring. EBL was 20 cc, and there was no complications. She was
transferred to the ICU postoperatively and elevating grader operator services consulted for additional management/recommendations.
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
Impression:
#Symptomatic left carotid artery stenosis s/p left carotid endarterectomy with bovine pericardial patch angioplasty and intraoperative EEG/SSEP monitoring (POD #1)
#History of recent left eye visual loss with several small subacute left parietal infarcts
#Hypothyroidism
#Anxiety/depression
#Obesity with suspected obstructive sleep apnea
#Hypercholesterolemia
#GERD
#Former tobacco smoker
Plan:
Postoperative surgical intensive care unit monitoring
Supplemental oxygen as needed to maintain SpO2 >90-94%
prn nebulized bronchodilators � not currently bronchospastic
Incentive spirometry encouraged 10x per hour for at least 4 hrs a day
Aspiration precautions
Pain control
Neuro and vascular checks per protocol
Maintain MAP>65
Replete electrolytes with K>4, Mg>2
Maintain euglycemia with goal BG 140-180
Dual antiplatelet therapy with high intensity statin as per neurology
- She will be on aspirin + Plavix for 21 days and then continue with lifelong aspirin after that
- Goal LDL <70
Vascular surgery following-correspondence and operative notes reviewed
Transfuse blood products as needed to keep Hb>7g/dL, and plt>50k (given post-operative status)
DVT prophylaxis
Early nutrition
Early mobilization
Outpatient office follow-up to discuss sleep disordered breathing given that she desaturates while sleeping.
Patient is being prepared for discharge home today. No additional recommendations at this time. Manager Of Information/pulmonary service will now sign off. Thank you for allowing us to be involved in the care of this patient. Please reconsult if there are
any additional questions/concerns, or if patient's respiratory status deteriorates.
Total time spent today was 56 minutes for this encounter. Time includes reviewing laboratory test/imaging results, reviewing pertinent medical records, obtaining and reviewing medical history, performing an appropriate exam, ordering medications,
tests and procedures. Time also includes documentation of this encounter, coordinating patient care and communicating with other healthcare professionals. Total time does not include separately billed tests performed on this date of service.
Data:
CTA Head/Neck 10/29/2024: There is large volume noncalcific atherosclerotic plaque at the left carotid bifurcation associated with approximately 85% stenosis of the left internal carotid artery at its origin
Brain MRI 10/28/2024: Several small nonhemorrhagic subacute left parietal lobe infarcts.
--- NOTE | 2024-10-31 10:16 | CM ---
Addendum entered by Chico Mcpherson 10/31/24 14:20:
Per [facility] CM pt upgraded to inpatient. IMM reviewed, placed on chart, pt has a copy.
PT and OT recommend outpatient PT/OT. Pt has a script for outpatient therapy and she will come to outpatient PT.
D/C plan: home with outpatient therapy at . to transport.,
Original Note:
CM following re:discharge planning.
Reviewed pt's chart, met with pt. Pt's and pt's polder brother at bedside.
Pt is POD #1 left carotid endarterectomy. per Vascular surgery, pt is doing well and most likely will be discharged home today. Pt is aware, expressed her desire to get home today. OBC letter reviewed yesterday , copy on the chart, pt has a copy.
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
D/C plan: home no needs. to transport.
--- NOTE | 2024-10-31 11:14 | W.PN.HOSP.TC ---
Today's Communication/Plan
-
DAPT for 21 days
High intensity statin
Neurovascular checks
PT/OT
Possible DC later with OP follow up
Assessment / Plan
Assessment / Plan
#Subacute left parietal infarcts
#Left-sided carotid stenosis
#Amaurosis fugax
-Highly suspicious for symptomatic carotid stenosis with 85% obstruction on CTA on study from the ED
-Outpatient MRI showed the subacute infarcts; was ordered for dysmetria of the right hand as well as monocular vision loss of the left eye
-Symptomatically she is improved with no visual deficits now, residual dysmetria of the left RUE is present
-Was started on DAPT and high intensity statin upon admission, no signs of bleeding; echo normal
-Has remained otherwise hemodynamically stable, BP 143/88 mmHg this morning
-Vascular surgery and neurology following; s/p left CEA on 10/30/2024
-NIHSS is very low
Plan
-Continue DAPT for 21 days, discontinue Plavix on day 22
-Continue with atorvastatin 80 mg nightly, LDL goal <55
-Continue on telemetry while here
-Neurovascular checks
-Plan for PT/OT after DC
#Iatrogenic hypothyroidism
-History of hyperthyroidism, s/p radiotracer ablation of the thyroid
-Now currently on levothyroxine 112 mcg daily
-No signs of thyroid dysfunction
#HLD
-Home medications included simvastatin
-ASCVD history with newly discovered high-grade carotid lesion
#Anxiety/depression
-Continue with Prozac
DVT prophylaxis: SCDs
Diet: Low-cholesterol
CODE STATUS: Full code
Disposition: Pending PT evaluation. Per vascular surgery may be stable for discharge later today. Will speak with vascular surgery attending about possible discharge. Likely will be suitable for home care
Anticipated Discharge: Within 24 hours
Subjective/Interval History
-
Date of Service: October 31, 2024
Seen and examined at the bedside. Status post left CEA yesterday with vascular surgery, no complications noted. No acute events. AFVSS this morning
POD #1. Patient states she feels well following the procedure, minimal pain at site of her CEA, has been responsive to Tylenol.
Denies any new complaints today.
Objective Data
-
Labs:
Laboratory Results
10/31/24
04:10
WBC 8.8
Hgb 12.6
Hct 38.9
Plt Count 229
PT 13.4
INR 0.99
APTT 29.0
Sodium 133 L
Potassium 4.8
Chloride 103
Carbon Dioxide 25
BUN 11
Creatinine 0.7
Glucose 142 H
Calcium 8.9
Vital Signs:
Vital Signs
Temp Pulse Resp BP Pulse Ox
98 F 79 18 114/63 94
10/31/24 07:45 10/31/24 11:00 10/31/24 11:00 10/31/24 10:48 10/31/24 11:00
I&O
10/30/24 10/31/24 11/01/24
06:59 06:59 06:59
Intake Total 1989 / 1989 280 / 280
Output Total 450 / 450 200 / 200
Balance 1540 / 1540 80 / 80
Review of Systems
-
History Source: Patient
All other systems: Reviewed and negative
Physical Exam
-
General: Well Developed, No Apparent Distress, Comfortable and Obese
HEENT: Normocephalic, Atraumatic, Moist Mucous Membranes and Anicteric
Respiratory: Clear to Auscultation and Non Labored Respirations
Cardiac: Regular Rhythm and S1/S2; Negative Murmur, Rub or Gallop
GI: Soft, Nontender, Nondistended and Normal Bowel Sounds
Musculoskeletal: No Clubbing, No Cyanosis and No Edema
Skin: Warm, Dry and Other (Left CEA incision well-healed, no erythema or purulence); Negative Rash
Neuro: AO x 3, Central Nerve's Intact and Other (Mild right hand dysmetria; otherwise no FND)
Psych: Calm
Data Reviewed
-
Labs: Labs Reviewed by me and Discussed with Patient
--- NOTE | 2024-10-31 13:42 | PTCARENOTE ---
reassessed. no changes in assessments. ambulated entire loop on ICU. medicated with tylenol for mild neck discomfort. vascular team updated
[2024-10-31] MEDS: PREVNAR 20 0.5 ML IM (14:15)
--- NOTE | 2024-10-31 15:15 | W.DCSUMMARY ---
Discharge Summary
Discharge Data
Date of Admission: 10/31/24
Date of Discharge: 10/31/24
-
Pending Results: No
Hospital Course
68-year-old female with hypothyroidism, hyperlipidemia, anxiety/depression that presented to the hospital with left-sided monocular vision loss with subsequent right hand dysmetria. Was seen by her family provider in the outpatient setting who
ordered MRI of the brain without contrast. 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 Was directed coming to the emergency department for further assessment. Initial CT head without contrast negative for signs of ICH or mass
effect. Follow-up CTA demonstrated high-grade 85% left carotid stenosis with high risk signs for thromboembolism. Was started on DAPT with aspirin, Plavix as well as a high intensity statin. Vascular surgery assessed the following day and took to
the OR on 10/30/2024 for left carotid endarterectomy. Successfully performed and monitored overnight into 10/31/2024 without any postsurgical complications. Follow-up with vascular surgery the following day for presurgical care and cleared for
discharge. Will need to continue DAPT for 21 days before discontinuing Plavix. Continue aspirin and high intensity statin indefinitely. Follow-up in office with vascular surgeon on 11/14/2024. Follow-up with PCP within 2 weeks of discharge from
hospital
Discharge Plan
-
Discharge Diagnosis/Procedures: Left carotid endarterectomy
Condition: Good
Diet: As tolerated and Low Cholesterol
Activity: No strenuous activity
Driving Restrictions: Not until seen by your Dr
Bathing Restrictions: OK to Shower
Activity Restrictions/Additional Instructions:
If you experience severe constant headache, weakness to an arm or leg, change in vision, trouble speaking or any stroke-like symptom, call 911 immediately
If you experience swelling, increased bruising, drainage from neck site, or fever, please call the office
Follow-up in office with your family doctor, should be seen within 1 to 2 weeks of discharge from hospital
Follow-up with vascular surgery in office on 11/14/2024 at 10:15 AM
Stand Alone Forms: DC Instr - Vascular OR
Referrals:
Devin Early MD [Active] - in two to three weeks (to discuss sleep disordered breathing)
Lee Ann Larios PA-C [Family Provider] -
Meliza Modi CRNP [Specified Professional Personl] - 11/14/24 10:15 am
Additional Discharge Medication Instructions: Start aspirin 81 mg daily and clopidogrel 75 mg daily for 21 days. On November 22, 2024 stop taking clopidogrel
Start atorvastatin 80 mg nightly indefinitely. Stop taking simvastatin
Oxycodone 5 mg every 4 hours as needed for pain, for 3 days postsurgery
Prescriptions:
New
atorvastatin 80 mg Tablet
80 mg PO QPM 30 Days Qty: 30 0RF
clopidogrel 75 mg Tablet
75 mg PO DAILY 21 Days Qty: 21 0RF
oxycodone 5 mg Tablet
5 mg PO Q4HPRN PRN (Reason: moderate pain) 3 Days Qty: 14 0RF
Continued
fluoxetine [Prozac] 40 mg Capsule
40 mg PO DAILY
Rx Instructions:
take with 20mg for total of 60mg
aspirin 81 mg Tablet,Chewable
81 mg PO DAILY
fluoxetine [Prozac] 20 mg Capsule
20 mg PO DAILY
Rx Instructions:
take with 40mg for total of 60mg
levothyroxine [Synthroid] 112 mcg Tablet
112 mcg PO DAILY
cholecalciferol (vitamin D3) [Vitamin D3] 25 mcg (1,000 unit) Tablet
25 mcg PO DAILY
Discontinued
simvastatin 40 mg Tablet
40 mg PO DAILY
Discharge Orders:
Discharge Patient (As Directed); Ordered 10/31/24
Ordered By: Bernardo Maradiaga
Discharge Date and Time
Print Language: BENGALI
== END 2024-10-31 15:38 | disposition home or self-care (01) | DRG 37 ==
LOC: ICU 13:38
PROVIDERS: Nurse Practitioner Acute Care; Physician Assistant Medical; Student in an Organized Health Care Education/Training Program; ADMITTING PHYSICIAN Internal Medicine; ATTENDING PHYSICIAN Internal Medicine; CONSULT PHYSICIAN Internal Medicine Critical Care Medicine; CONSULT PHYSICIAN Psychiatry & Neurology Neurology; CONSULT PHYSICIAN Surgery Vascular Surgery; EMERGENCY PHYSICIAN Emergency Medicine; FAMILY PHYSICIAN Physician Assistant Medical
PROC: 03CJ0ZZ Extirpation of Matter from Left Common Carotid Artery, Open Approach (ICD-10-PCS; 2024-10-30)
PROC: 03UJ0KZ Supplement Left Common Carotid Artery with Nonautologous Tissue Substitute, Open Approach (ICD-10-PCS; 2024-10-30)
DX: I65.22 Occlusion and stenosis of left carotid artery (principal); I63.9 Cerebral infarction, unspecified; H53.122 Transient visual loss, left eye; E03.9 Hypothyroidism, unspecified; E78.00 Pure hypercholesterolemia, unspecified; E78.49 Other hyperlipidemia; F41.9 Anxiety disorder, unspecified; F32.A Depression, unspecified; E66.9 Obesity, unspecified; K21.9 Gastro-esophageal reflux disease without esophagitis; Z79.02 Long term (current) use of antithrombotics/antiplatelets; Z79.82 Long term (current) use of aspirin; Z87.891 Personal history of nicotine dependence
CPT/HCPCS: 88304; 88311; 35301; 70496; 70498; 70553; 80048; 80053; 80061; 85025; 85027; 85610; 85730; 86803; 86850; 86900; 86901; 90677; 92523; 93005; 93306; 95938; 95941; 95955; 97163; 97166; 99285; A9575; G0009; Q9967

== ENCOUNTER 2024-11-18 11:00 | Outpatient (RCR) | payer MEDICARE, SELFPAY | END 2024-11-19 07:21 | disposition home or self-care (01) | LOC: ROT 11:00 | PROVIDERS: ATTENDING PHYSICIAN Physician Assistant Medical | DX: I69.312 Visuospatial deficit and spatial neglect following cerebral infarction (principal); Z73.6 Limitation of activities due to disability; I69.398 Other sequelae of cerebral infarction | CPT/HCPCS: 97110; 97163; 97167; 97530 ==

== ENCOUNTER → 2024-12-02 11:06 | Outpatient (REF) | payer MEDICARE, SELFPAY | LOC: RAD 11:06 | PROVIDERS: ATTENDING PHYSICIAN Registered Nurse; FAMILY PHYSICIAN Physician Assistant Medical | DX: I65.22 Occlusion and stenosis of left carotid artery (principal) | CPT/HCPCS: 93880 ==

== ENCOUNTER → 2025-03-23 09:01 | Outpatient (REF) | payer MEDICARE, SELFPAY ==
[2025-03-23 12:27] LABS: % Basophils 1.1 % (0-2); % Eosinophils 2.4 % (0-6); % Immature Granulocytes 0.2 % (0-0.5); % Lymphocytes 33.4 % (20.5-51.1); % Monocytes 7.4 % (1.7-9.3); % Neutrophils 55.5 % (42.2-75.2); Absolute Basophils 0.1 10^3/uL (0-0.2); Absolute Eosinophils 0.1 10^3/uL (0-0.7); Absolute Lymphocytes 1.5 10^3/uL (1.2-3.4); Absolute Monocytes 0.3 10^3/uL (0.1-0.6); Absolute Neutrophils 2.5 10^3/uL (1.4-6.5); Hematocrit 42.1 % (37.0-47.0); Hemoglobin 13.6 g/dL (12.0-16.0); Mean Corp Hgb Conc. 32.3 g/dL (33.0-37.0); Mean Corpuscular Hgb 28.7 pg (27.0-31.0); Mean Corpuscular Volume 88.8 fL (81.0-99.0); Mean Platelet Volume 10.3 fL (7.4-10.4); Nucleated Red Blood Cells % 0 %; Platelet Count 220 10^3/uL (130-400); Red Blood Cell Count 4.74 10^6/uL (4.20-5.40); Red Cell Dist. Width 15.9 % (11.5-14.5); White Blood Cell Count 4.6 10^3/uL (4.8-10.8)
[2025-03-23 12:42] LABS: TSH Reflex To Free T4 0.69 uIU/ml (0.47-4.68)
[2025-03-23 14:02] LABS: Glycohemoglobin (HgbA1c) 5.3 % (4.0-5.6)
[2025-03-23 14:09] LABS: ALT (SGPT) 25 U/L (0-35); AST (SGOT) 25 U/L (14-36); Albumin 4.1 g/dl (3.5-5.0); Alkaline Phosphatase 105 U/L (38-126); Blood Urea Nitrogen 12 mg/dl (7-17); Calcium 9.8 mg/dl (8.4-10.2); Carbon Dioxide 23 mmol/L (22-30); Chloride 110 mmol/L (98-107); Glucose 99 mg/dl (70-99); HDL Cholesterol 78 mg/dl; LDL Cholesterol, Calculated 82 mg/dl; Potassium 4.5 mmol/L (3.5-5.1); Sodium 141 mmol/L (135-145); Total Bilirubin 0.5 mg/dl (0.2-1.3); Total Cholesterol 172 mg/dl (50-199); Total Protein 6.6 g/dl (6.3-8.2); Triglyceride 63 mg/dl (10-149); Very Low Density Lipoprotein 12 mg/dl (0-30); eGFR > 60.00
== END ==
LOC: HWLAB 09:01
PROVIDERS: ATTENDING PHYSICIAN Physician Assistant Medical; FAMILY PHYSICIAN Physician Assistant Medical
DX: R73.01 Impaired fasting glucose (principal); E78.2 Mixed hyperlipidemia; E03.9 Hypothyroidism, unspecified
CPT/HCPCS: 36415; 80053; 80061; 83036; 84443; 85025

== ENCOUNTER → 2025-04-21 14:05 | Outpatient (REF) | payer MEDICARE, SELFPAY | LOC: RAD 14:05 | PROVIDERS: ATTENDING PHYSICIAN Physician Assistant Medical | DX: K43.9 Ventral hernia without obstruction or gangrene (principal) | CPT/HCPCS: 74177; Q9967 ==

== ENCOUNTER → 2025-06-11 06:55 | Outpatient (REF) | payer MEDICARE, SELFPAY | LOC: RAD 06:55 | PROVIDERS: ATTENDING PHYSICIAN Surgery Vascular Surgery; FAMILY PHYSICIAN Physician Assistant Medical | DX: I65.22 Occlusion and stenosis of left carotid artery (principal) | CPT/HCPCS: 93880 ==

== ENCOUNTER → 2025-09-18 07:51 | Outpatient (REF) | payer MEDICARE, SELFPAY ==
[2025-09-18 08:56] LABS: Hematocrit 44.7 % (37.0-47.0); Hemoglobin 14.6 g/dL (12.0-16.0); Mean Corp Hgb Conc. 32.7 g/dL (33.0-37.0); Mean Corpuscular Volume 91.6 fL (81.0-99.0); Nucleated Red Blood Cells % 0 %; Platelet Count 233 10^3/uL (130-400); Red Cell Dist. Width 13.4 % (11.5-14.5)
[2025-09-18 09:23] LABS: ALT (SGPT) 21 U/L (0-35); AST (SGOT) 23 U/L (14-36); Albumin 4.3 g/dl (3.5-5.0); Alkaline Phosphatase 103 U/L (38-126); Blood Urea Nitrogen 18 mg/dl (7-17); Calcium 9.7 mg/dl (8.4-10.2); Carbon Dioxide 28 mmol/L (22-30); Chloride 104 mmol/L (98-107); Glucose 101 mg/dl (70-99); HDL Cholesterol 81 mg/dl; Iron 89 ug/dl (37-170); LDL Cholesterol, Calculated 154 mg/dl; Potassium 4.3 mmol/L (3.5-5.1); Sodium 139 mmol/L (135-145); Total Protein 7.1 g/dl (6.3-8.2); Very Low Density Lipoprotein 15 mg/dl (0-30); eGFR 55.07
[2025-09-18 09:33] LABS: Total Iron Binding Capacity 389 ug/dl (265-497)
[2025-09-18 09:40] LABS: Vitamin D, 25-OH*** > 126 ng/mL (30-80)
[2025-09-18 09:55] LABS: Ferritin 10.8 ng/ml (11.1-264.0)
[2025-09-18 10:26] LABS: Folate 12.0 ng/ml (2.76-20); Vitamin B12 772 pg/ml (239-931)
[2025-09-18 11:25] LABS: Glycohemoglobin (HgbA1c) 5.3 % (4.0-5.9)
== END ==
LOC: REG 07:51
PROVIDERS: ATTENDING PHYSICIAN Physician Assistant Medical
DX: Z00.01 Encounter for general adult medical examination with abnormal findings (principal); Z71.89 Other specified counseling; R53.83 Other fatigue; K43.9 Ventral hernia without obstruction or gangrene; N28.1 Cyst of kidney, acquired; K76.89 Other specified diseases of liver; E78.2 Mixed hyperlipidemia; I65.23 Occlusion and stenosis of bilateral carotid arteries; I10 Essential (primary) hypertension; E03.9 Hypothyroidism, unspecified; D72.819 Decreased white blood cell count, unspecified; F33.1 Major depressive disorder, recurrent, moderate; R73.01 Impaired fasting glucose; Z13.820 Encounter for screening for osteoporosis; M81.0 Age-related osteoporosis without current pathological fracture; Z13.31 Encounter for screening for depression; Z12.11 Encounter for screening for malignant neoplasm of colon; E66.3 Overweight; Z68.35 Body mass index [BMI] 35.0-35.9, adult; E55.9 Vitamin D deficiency, unspecified
CPT/HCPCS: 36415; 80053; 80061; 82306; 82607; 82728; 82746; 83036; 83540; 83550; 84439; 84443; 85025; 86376